=== PATIENT | male | born 1995 | race African-American/Black ===

== ENCOUNTER 2021-04-02 19:39 | Emergency (ER) | payer OTHER ==
[2021-04-02 22:35] VITALS: BP 161/83
[2021-04-02] MEDS ORDERED: IBUPROFEN 800 MG TAB PO ONE (23:10)
--- NOTE | 2021-04-03 00:16 | XRay Report ---
Right wrist 4 views INDICATION: Fall FINDINGS: Carpal bone alignment appears normal. No acute fracture or dislocation. No focal soft tissu e swelling Signer Name: Ken Charles MD Signed: 04/03/2021 12:12 AM Workstation Name: [id number]
--- NOTE | 2021-04-03 00:17 | XRay Report ---
Pelvis one view INDICATION: Fall FINDINGS: Bilateral femoral heads well-seated in the acetabulum. No acute fracture. Sacrum appears no rmal. SI joints appear normal. Superior and inferior pubic rami appear normal. IMPRESSION: No acute findings Signer Name: Ken Charles MD Signed: 04/03/2021 12:12 AM Workstation Name: [email or web address]
--- NOTE | 2021-04-03 00:18 | XRay Report ---
Left RIBS INDICATION: Fall FINDINGS: Lungs are clear. No displaced rib fracture is identified. Signer Name: eKn Charles MD Signed: 04/03/2021 12:14 AM Workstation Name: [id number]
--- NOTE | 2021-04-03 00:19 | XRay Report ---
Left knee 2 views INDICATION: Fall FINDINGS: Alignment appears normal. No acute fracture is seen. Signer Name: Ken Charles MD Signed: 04/03/2021 12:14 AM Workstation Name: [id number]
--- NOTE | 2021-04-03 00:22 | Emergency Department Report ---
ED Fall HPI - General Chief Complaint: Fall Stated Complaint: FELL OFF LADDER Time Seen by Provider: 04/02/21 23:02 Source: patient Mode of arrival: Ambulatory - History of Present Illness Initial Comments: Patient is a 25-year-old [place] gentleman who is presenting status post fall. Patient was on a ladder at work and fell. Fell on his left ribs. He also tried to brace his fall and is injured his right wrist as well. Patient has some pain in the posterior left ribs left hip and left knee. Patient with 6 out of 10 pain with movement and palpation. Believes he may have hit his head but has no headache no loss of consciousness. - Related Data Previous Rx's Medication Instructions Recorded Last Taken Type HYDROcodone/APAP 5-325 [[place] 1 each PO Q6HR PRN #14 tablet 04/03/21 Unknown Rx 5/325] Ketorolac [Toradol] 10 mg PO Q6H PRN #12 tablet 04/03/21 Unknown Rx methOCARBAMOL [Robaxin TAB] 500 mg PO Q6H PRN #14 tablet 04/03/21 Unknown Rx Allergies Allergy/AdvReac Type Severity Reaction Status Date / Time No Known Allergies Allergy Verified 04/02/21 22:35 ED Review of Systems ROS: Stated complaint: FELL OFF LADDER Other details as noted in HPI Comment: All other systems reviewed and negative ED Past Medical Hx - Past Medical History Previous Medical History?: No - Surgical History Past Surgical History?: No - Medications Home Medications: Home Medications Medication Instructions Recorded Confirmed Last Taken Type HYDROcodone/APAP 5-325 [[place] 1 each PO Q6HR PRN #14 tablet 04/03/21 Unknown Rx 5/325] Ketorolac [Toradol] 10 mg PO Q6H PRN #12 tablet 04/03/21 Unknown Rx methOCARBAMOL [Robaxin TAB] 500 mg PO Q6H PRN #14 tablet 04/03/21 Unknown Rx ED Physical Exam - General Limitations: No Limitations General appearance: alert, in no apparent distress - Head Head exam: Present: atraumatic, normocephalic - Eye Eye exam: Present: normal appearance - ENT ENT exam: Present: mucous membranes moist - Neck Neck exam: Present: normal inspection - Respiratory Respiratory exam: Present: normal lung sounds bilaterally, chest wall tenderness (left posterior lateal rib pain). Absent: respiratory distress, wheezes, rales, rhonchi - Cardiovascular Cardiovascular Exam: Present: regular rate, normal rhythm, normal heart sounds. Absent: systolic murmur, diastolic murmur, rubs, gallop - GI/Abdominal GI/Abdominal exam: Present: soft, normal bowel sounds. Absent: distended, tenderness, guarding, rebound - Rectal Rectal exam: Present: deferred - Extremities Exam Extremities exam: Present: normal inspection, other (bruse at the left iliac creat area) - Back Exam Back exam: Present: normal inspection - Neurological Exam Neurological exam: Present: alert, oriented X3 - Psychiatric Psychiatric exam: Present: normal affect, normal mood - Skin Skin exam: Present: warm, dry, intact, normal color. Absent: rash ED Course Vital Signs 04/02/21 22:34 Temperature 98.9 F Pulse Rate 123 H Respiratory 18 Rate Blood Pressure 161/83 O2 Sat by Pulse 99 Oximetry ED Medical Decision Making - Radiology Data X-ray of the left ribs with chest shows no pneumothorax. Possible nondisplaced fracture of the rib #8. X-rays of the right wrist left knee and left pelvis are within normal limits. Critical care attestation.: If time is entered above; I have spent that time in minutes in the direct care of this critically ill patient, excluding procedure time. ED Disposition Clinical Impression: Wrist sprain, Contusion, hip Rib fracture Qualifiers: Encounter type: initial encounter Rib fracture type: single rib Fracture type: closed Laterality: left Qualified Code(s): S22.32XA - Fracture of one rib, left side, initial encounter for closed fracture Disposition: HOME / SELF CARE / HOMELESS Is pt being admited?: No Does the pt Need Aspirin: No Condition: Stable Instructions: Wrist Sprain, Adult, Elastic Bandage and RICE Therapy, Contusion, [id number], Rib Fracture Referrals: ALIZE BROOKS MD [Staff Physician] - 3-5 Days Time of Disposition: 00:22
== END 2021-04-03 01:00 | disposition home or self-care (01) ==
LOC: ED 19:39
DX: S22.32XA Fracture of one rib, left side, initial encounter for closed fracture (principal); S63.501A Unspecified sprain of right wrist, initial encounter; S70.02XA Contusion of left hip, initial encounter; W11.XXXA Fall on and from ladder, initial encounter; Y93.89 Activity, other specified; Y92.89 Other specified places as the place of occurrence of the external cause; Y99.8 Other external cause status
CPT/HCPCS: 72170; 99283